=== PATIENT | female | born 2000 | race Caucasian/White ===

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

== ENCOUNTER → 2022-04-01 | Outpatient (CLI) | payer BC, OTHER ==
[2022-04-01 16:52] LABS: MEAN CORPUSCULAR HGB 30.8 pg (27.0-31.0); MEAN CORPUSCULAR HGB CONC 33.5 g/dl (33.0-37.0); MEAN PLATELET VOLUME 10.5 fl (9.6-12.3); RED BLOOD COUNT 4.35 10*6/uL (4.10-5.10); RED CELL DISTRI WIDTH 12.6 % (0-14.5); WHITE BLOOD COUNT 6.8 10*3/uL (4.8-10.8)
[2022-04-01 17:10] LABS: ALKALINE PHOSPHATASE 44 U/L (45-117); BUN 8 mg/dl (7-24); CHLORIDE 108 mmol/L (98-107); CHOLESTEROL 175 mg/dL (<200); CREATININE 0.76 mg/dL (0.55-1.02); LDL CHOLESTEROL 88 mg/dL (9-159); SGOT/AST 12 IU/L (3-35); SGPT/ALT 19 U/L (12-78); SODIUM 138 mmol/L (136-145); TOTAL PROTEIN 7.3 gm/dL (6.4-8.2); TRIGLYCERIDES 170 mg/dl (<150)
[2022-04-01 17:43] LABS: VITAMIN D, 25-HYDROXY 33.8 ng/mL (30-100)
== END | disposition home or self-care (01) ==
LOC: LAB 16:36
PROVIDERS: ATTEND Family Medicine
DX: E55.9 Vitamin D deficiency, unspecified (principal); R51.9 Headache, unspecified; R53.83 Other fatigue

== ENCOUNTER 2022-10-13 14:54 | Emergency (ER) | payer OTHER ==
[~2022-10-13] VITALS: Ht 172.7 cm; Wt 90.7 kg
[2022-10-13] MEDS ORDERED: CEPHALEXIN500 M1 PO (15:35)
== END 2022-10-13 15:58 | disposition home or self-care (01) ==
LOC: ED 14:54
DX: S61.412A Laceration without foreign body of left hand, initial encounter (principal); Z79.2 Long term (current) use of antibiotics; Z79.899 Other long term (current) drug therapy; W27.2XXA Contact with scissors, initial encounter; Y93.89 Activity, other specified; Y92.89 Other specified places as the place of occurrence of the external cause; Y99.8 Other external cause status

== ENCOUNTER → 2023-07-25 | Outpatient (CLI) | payer OTHER ==
[~2023-07-25] MED LIST changes: +CEPHALEXIN500 M1 PO
[2023-07-25 08:37] LABS: MEAN CELL VOLUME 91.1 fl (81.0-99.0); MEAN CORPUSCULAR HGB 29.8 pg (27.0-31.0); MEAN CORPUSCULAR HGB CONC 32.7 g/dl (33.0-37.0); MEAN PLATELET VOLUME 10.5 fl (9.6-12.3); RED BLOOD COUNT 4.5 10*6/uL (4.10-5.10); RED CELL DISTRI WIDTH 12.4 % (0-14.5); WHITE BLOOD COUNT 8.6 10*3/uL (4.8-10.8)
[2023-07-25 09:02] LABS: VITAMIN D, 25-HYDROXY 24.1 ng/mL (30-100)
[2023-07-25 09:03] LABS: ALKALINE PHOSPHATASE 61 U/L (46-116); BUN 9 mg/dl (9-23); CHLORIDE 107 mmol/L (98-107); CHOLESTEROL 129 mg/dL (<200); FREE T4 1.13 ng/dl (0.89-1.76); LDL CHOLESTEROL 62 mg/dL (9-159); SGPT/ALT 9 U/L (5-49); TOTAL PROTEIN 7.1 gm/dL (6.0-8.0); TRIGLYCERIDES 77 mg/dl (<150)
[2023-07-29 12:07] LABS: TESTOSTERONE FREE, (DIRECT) 1.6 pg/mL (0.0-4.2)
== END | disposition home or self-care (01) ==
LOC: LAB 01:31
PROVIDERS: ATTEND Family Medicine
DX: Z00.00 Encounter for general adult medical examination without abnormal findings (principal); F41.1 Generalized anxiety disorder; E74.00 Glycogen storage disease, unspecified; E55.9 Vitamin D deficiency, unspecified; L68.0 Hirsutism; R63.5 Abnormal weight gain; E78.00 Pure hypercholesterolemia, unspecified

== ENCOUNTER 2024-03-19 22:00 | Emergency (ER) | payer BC, OTHER ==
[~2024-03-19] VITALS: Ht 180.3 cm; Wt 95.3 kg
[2024-03-19] MEDS ORDERED: LEXAPRO20 MG PO (22:09)
[2024-03-19] MEDS ORDERED: predniSONE 20 MG TAB PO ONE (22:20)
[2024-03-19] MEDS ORDERED: PREDNISONE20 M1 PO (22:46)
[2024-03-19] MEDS ORDERED: diphenhydrAMINE hydrochloride 25 MG CAP PO ONE (22:50)
== END 2024-03-19 23:07 | disposition home or self-care (01) ==
LOC: ED 22:00
DX: T78.40XA Allergy, unspecified, initial encounter (principal); H57.89 Other specified disorders of eye and adnexa; X58.XXXA Exposure to other specified factors, initial encounter

== ENCOUNTER → 2024-04-01 | Outpatient (CLI) | payer BC, OTHER ==
[~2024-04-01] MED LIST changes: +LEXAPRO20 MG PO; +PREDNISONE20 M1 PO
[2024-04-01 10:19] LABS: BASO % 0.3 % (0.0-1.0); EOS # 0.2 10*3/uL (0.0-0.4); HEMATOCRIT 41.9 % (37.0-47.0); MEAN CELL VOLUME 92.1 fl (81.0-99.0); MEAN CORPUSCULAR HGB 29.2 pg (27.0-31.0); MEAN CORPUSCULAR HGB CONC 31.7 g/dl (33.0-37.0); MEAN PLATELET VOLUME 9.9 fl (9.6-12.3); MONO # 0.5 10*3/uL (0.1-1.0); MONO % 6.1 % (3.0-9.0); NEUT # 3.5 10*3/uL (2.3-7.9); NEUT % 44.2 % (47.0-73.0); PLATELET COUNT AUTOMATED 288 10*3/uL (130-400); RED BLOOD COUNT 4.55 10*6/uL (4.10-5.10); RED CELL DISTRI WIDTH 13.2 % (0-14.5); WHITE BLOOD COUNT 7.9 10*3/uL (4.8-10.8)
[2024-04-01 10:50] LABS: ALKALINE PHOSPHATASE 62 U/L (46-116); BUN 10 mg/dl (9-23); CHLORIDE 105 mmol/L (98-107); SGPT/ALT 10 U/L (5-49); TOTAL PROTEIN 7.1 gm/dL (6.0-8.0)
== END | disposition home or self-care (01) ==
LOC: RESCLI 00:59
PROVIDERS: ATTEND Internal Medicine
DX: R53.83 Other fatigue (principal); R21 Rash and other nonspecific skin eruption; E66.9 Obesity, unspecified; R19.7 Diarrhea, unspecified; K92.1 Melena; F41.9 Anxiety disorder, unspecified; Z79.899 Other long term (current) drug therapy

== ENCOUNTER 2024-04-11 00:43 | Emergency (ER) | payer BC, OTHER ==
[~2024-04-11] VITALS: Ht 175.2 cm; Wt 90.7 kg
[2024-04-11] MEDS ORDERED: methylPREDNISolone sod succ 125 MG VIAL IM ONE (00:45)
== END 2024-04-11 01:15 | disposition home or self-care (01) ==
LOC: ED 00:43
DX: H01.9 Unspecified inflammation of eyelid (principal)

== ENCOUNTER → 2024-06-29 | Outpatient (CLI) | payer BC, OTHER ==
[2024-06-29 10:26] LABS: TOTAL PROTEIN 6.5 gm/dL (6.0-8.0)
== END | disposition home or self-care (01) ==
LOC: LAB 09:23
PROVIDERS: ATTEND Nurse Practitioner Family
DX: K92.1 Melena (principal); R19.7 Diarrhea, unspecified